=== PATIENT | male | born 1960 | race Caucasian/White ===

== ENCOUNTER 2019-05-22 08:07 | Outpatient (CLI) | payer OTHER, SELFPAY ==
--- NOTE | ~2019-05-22 | XR_ITS ---
EXAMINATION: XR chest 2V DATE: 05/22/2019 09:19 INDICATION: Prostate cancer. Preop. TECHNIQUE: Frontal and lateral views of the chest were obtained. COMPARISON: None. FINDINGS: The chest demonstrates clear lungs without pneumonia, pleural effusion, or pneumothorax. Th e heart size is normal. IMPRESSION: 1. No acute cardiopulmonary disease. Reviewed, dictated and finalized at location A. H TRIMMER HAND
--- NOTE | 2019-05-22 08:52 | ECG_ITS ---
Measurements Intervals Donna Rate: 61 P: 64 IL: 157 QRS: 57 QRSD: 102 T: 43 QT: 391 QTc: 397 Interpretive Statements SINUS RHYTHM DELAYED PRECORDIAL R/S TRANSITION BORDERLINE ECG Electronically Signed On 05-22-2019 9:37:23 TUBE CLOSING MACHINE OPERATOR by Rodolfo Blanca D.O.
[2019-05-22 09:18] LABS: Basophils Percent Auto 0.6 % (0.2-1.2); Eosinophils Absolute Auto 0.2 K/mm3 (0-0.3); Eosinophils Percent Auto 3.7 % (0-4.4); Hematocrit 42.5 % (42.0-52.0); Hemoglobin 14.3 g/dL (14.0-18.0); Immature Granulocyte Absolute 0.02 K/mm3 (0.00-0.031); Immature Granulocyte Percent A 0.3 % (0-0.5); Lymphocytes Absolute Auto 2.48 K/mm3 (0.9-3.2); Lymphocytes Percent Auto 39.7 % (18.3-44.2); Mean Corpuscular HGB Conc 33.6 g/dl (32-36); Mean Corpuscular Volume 89.1 fl (80-100); Mean Platelet Volume 10.7 fl (7.4-10.4); Monocytes Absolute Auto 0.5 K/mm3 (0.1-0.6); Monocytes Percent Auto 8.5 % (2.6-8.5); Neutrophils Absolute Auto 2.9 K/mm3 (1.3-6.7); Neutrophils Percent Auto 47.2 % (45.5-73.1); Platelet Count Result 273 k/mm3 (150-375); Red Blood Count 4.77 M/mm3 (4.6-6.20); Red Cell Distribution Width 12.6 % (11.5-14.5); White Blood Count 6.2 K/mm3 (4.5-10.0)
[2019-05-22 09:21] LABS: Add Urine Microscopic? YES; Appearance Urine Clear (Clear); Bilirubin Urine Negative (Negative); Blood Urine Negative (Negative); Color Urine Yellow (Yellow); Glucose Urine UA Negative (Negative); Ketones Urine Negative (Negative); Leukocyte Esterase Ur Negative LEU/UL (Negative); Mucus Urine Rare /lpf; Nitrate Urine Negative (Negative); Protein Urine Negative (Negative); RBC Urine 0-2 /hpf (0-2); Specific Grav Ur 1.011 (1.001-1.035); Urobilinogen Urine Negative mg/dL (<2.0)
[2019-05-22 09:28] LABS: INR 0.9; Prothrombin Time 12.3 Seconds (11.1-14.7)
[2019-05-22 09:29] LABS: Partial Thromboplastin Time 29.5 SECONDS (22.3-36.8)
[2019-05-22 09:31] LABS: Alanine Aminotransferase 36 U/L (4-50); Albumin Level 4.4 g/dL (3.5-5.1); Alkaline Phosphatase 78 U/L (38-126); Aspartate Amino Transferase 37 U/L (17-59); Bilirubin,Total 0.5 mg/dL (0.2-1.3); Blood Urea Nitrogen 16 mg/dL (9-20); Calcium 9.8 mg/dL (8.4-10.2); Carbon Dioxide 25 mmol/L (22-30); Chloride 101 mmol/L (98-107); Estimated Glomerular Filt Rate > 60; Glucose 87 mg/dL (75-110); Sodium 136 mmol/L (137-145)
== END 2019-05-22 08:08 | disposition home or self-care (01) ==
PROVIDERS: PCP Internal Medicine; Visit Provider Urology
DX: C61 Malignant neoplasm of prostate (principal)
CPT/HCPCS: 36415; 71046; 80053; 81001; 85025; 85610; 85730; 86850; 86900; 86901; 93005

== ENCOUNTER 2019-06-01 00:04 | Day surgery (SDC) | payer OTHER, SELFPAY ==
[2019-05-22 08:00] VITALS: BP 150/80; PULSE 64; RESP 20; TEMP 36.9; O2SAT 97; BMI 29.1
--- NOTE | 2019-05-30 17:18 | PM.IMHP ---
H&P: HPI History of Present Illness Chief complaint: Prostate Ca Narrative: Blayne Sykes is a 58 year old male with clinically localized CaP. He initially presented with PSA 5.6. Prostate biopsy showed 3 of 12 cores with Kamila 3+3=6 adenocarcinoma - a NCCN guideline low-risk CaP. His prostate size, by transrectal u/s was 31.1gm. After discussion and consideration, he's elected for robotic-assisted prostatecomy with bilateral pelvic lymphadenectAlternative treatment options (including active surveillance, radiation therapy in its various forms and androgen ablation) have been discussed. We've also discussed complications of this procedure including, but not limited to, failure to control his cancer, adverser cardiopulmonary events, rectal injury, need to convert to an open procedure, urinary incontinence and erectile dysfunction.geno. Review of Systems Constitutional: Constitutional: Denies chills, Denies fatigue, Denies fever(s) and Denies headache(s) Eyes: Eyes: Denies blurry vision ENT: Denies vertigo, Denies dizziness, Denies headache(s) and Denies sore throat Cardiovascular: Cardiovascular: Denies chest pain, Denies syncope, Denies lightheadedness, Denies palpitations, Denies dyspnea and Denies dyspnea on exertion Respiratory: Respiratory: Denies hemoptysis, Denies dyspnea and Denies dyspnea on exertion Gastrointestinal: Gastrointestinal: Denies melena, Denies bloating, Denies hematochezia, Denies change in bowel habits, Denies change in stool character, Denies constipation, Denies diarrhea and Denies vomiting Genitourinary: Genitourinary: Denies hematuria, Denies dysuria, Denies testicular pain, Denies urinary frequency, Denies urinary hesitancy and Denies urinary urgency Integumentary/Breasts: Skin/Breast: Denies pruritus, Denies lesions and Denies rash Neurologic: Denies confusion, Denies vertigo, Denies dizziness, Denies syncope and Denies headache(s) Psychiatric: Psychiatric: Denies anxiety, Denies change in appetite and Denies confusion Endocrine: Endocrine: Denies fatigue and Denies palpitations PMFSH Family History Family History Mother Patient's mother is in good health Sibling Patient's brother is in good health Social History Social History Smoking status: Never smoker Second hand tobacco smoke exposure: No Alcohol intake: current Meds Home Medications and Allergies Home Medications Medication Instructions Recorded Confirmed Type cyclobenzaprine 10 mg tablet 10 mg PO .hs PRN tablet 02/27/19 05/22/19 History eszopiclone 3 mg tablet 3 mg PO ONCE PRN 02/27/19 05/22/19 History multivitamin 1 tablet PO DAILY 02/27/19 05/22/19 History Allergies Allergy/AdvReac Type Severity Reaction Status Date / Time No Known Allergies Allergy Verified 02/27/19 16:18 Exam Const: General: healthy appearing, comfortable, no acute distress and well developed; No confusion Nutritional Appearance: well nourished Orientation/consciousness: patient oriented x3 and No confusion HENMT: Head: normocephalic and atraumatic Ears: external ears normal Face and sinus: normal facial exam Mouth: Yes lip normal Teeth and gingiva: dentition normal Eyes: General: appearance normal, both eyes and all related structures Alignment and Position: alignment normal Eyelids: eyelids normal Cornea: corneas normal Pupils: Equal, round and reactive pupils present EOM: EOMs intact bilaterally Neck: Neck: normal visual inspection, full ROM and no JVD Chest: Chest palpation & inspection: normal inspection of the chest Resp: Effort & Inspection: normal respiratory effort and no use of accessory muscles Auscultation: clear to auscultation bilaterally Cardio: Jugular venous distension: no JVD Rate: regular rate Rhythm: regular rhythm GI: Inspection: normal to inspection GI Palp: No abdominal tenderness, No
[2019-06-01] VITALS (13 sets, daily range): BP systolic 95–146; BP diastolic 59–88; PULSE 49–77; RESP 11–18; TEMP 35.4–37.3; O2SAT 98–100; BMI 28.7
[2019-06-01] MEDS: LACTATED RINGERS 1,000 ML 30 ML IV CONT ×2 (06:21→11:06)
--- NOTE | 2019-06-01 06:54 | WPDANESEPPF ---
Anes - Initial Pre Proc Eval Procedure: Operation Date: 06/01/19 07:30 Proposed Procedures p Robotic Assisted Radical Retropubic Prostatectomy, Bilateral Pelvic Lymphadenectomy(Bilateral) - Jose Angel Kaur MD Date/Time: 06/01/19 06:54 Surgeon: Jose Angel Kaur MD Pre Op Diagnosis: Prostate Ca Patient Data Age: 58 Gender: M Height: 1.78 m Weight: 92.2 kg Last Vital Signs Temp 36.9 C 05/22/19 08:00 Pulse 64 05/22/19 08:00 Resp 20 05/22/19 08:00 BP 150/80 H 05/22/19 08:00 Pulse Ox 97 05/22/19 08:00 Allergies Allergy/AdvReac Type Severity Reaction Status Date / Time No Known Allergies Allergy Verified 02/27/19 16:18 Home Medications Medication Instructions Recorded Confirmed Type cyclobenzaprine 10 mg tablet 10 mg PO .hs PRN tablet 02/27/19 05/22/19 History eszopiclone 3 mg tablet 3 mg PO ONCE PRN 02/27/19 05/22/19 History multivitamin 1 tablet PO DAILY 02/27/19 05/22/19 History ECG: SINUS RHYTHM DELAYED PRECORDIAL R/S TRANSITION BORDERLINE ECG Patient hx anesthesia problems: none Family hx anesthesia problems: none PMFSH Family History Family History Mother Patient's mother is in good health Sibling Patient's brother is in good health Social History Social History Smoking status: Never smoker Second hand tobacco smoke exposure: No Alcohol intake: current Anes - Eval Final PreProcedure Day of Procedure 06/01/19 06:54 Patient weight: overweight Heart: regular rate and rhythm Lungs: clear to auscultation and normal air movement Airway: Mallampati scale class 1 Neurological: alert and oriented Last oral intake: >/= 8 hours ASA classification: III Emergent: no Anesthetic plan: proceed Anesthesia type and monitoring: general ETT and standard monitoring Informed Consent: The patient's anesthetic plan and its attendant risks and benefits were discussed with the patient/family/POA. Questions were solicited and answers provided to the satisfaction of the patient/family/POA.
--- NOTE | 2019-06-01 06:57 | WPDHPUPDATE1 ---
History and Physical Update Update Date/Time: 06/01/19 06:57 History and Physical has been reviewed, including an updated exam of the patient. There are NO changes in the patient's condition. Risks, benefits, and alternatives have been discussed and questions answered. Patient agrees to proceed with procedure.
[2019-06-01] MEDS: ceFAZolin 2 GM/D5W 50 ML 2 GM/50 ML BAG IVPB (07:29)
--- NOTE | 2019-06-01 11:01 | PM.PROC ---
Procedure Note - Detailed Date of procedure: 06/01/19 Pre-op diagnosis: Prostate Ca Post-op diagnosis: same Procedure performed: Robotic-assisted, bilateral nerve-sparing radical retropubic prostatectomy. Bilateral pelvic lymphadenectomy. Description of procedure: The patient was brought to the operative suite, where he was prepped and draped in routine sterile fashion while in a dorsal lithotomy, deep Trendelenburg position. A supraumbilical 10 mm trocar was placed after insufflation of the abdomen with a Veress needle. Three robotic ports were then placed under direct vision. Two of these were placed in the right lower quadrant - 10 cm and 20 cm lateral to, and in line with, the umbilicus. A third robotic trocar was placed 10 cm to the left of the umbilicus, and 20 cm to the left of the umbilicus, a 12 mm standard laparoscopic trocar was placed to be used as an department assistant port. Lastly, a 5 mm trocar was placed in the left upper quadrant midway between the umbilicus and the left robotic trocar. Attention was then turned to the prostatectomy. I opted for a posterior approach in this patient. An incision was made in the parietal peritoneum along the posterior bladder/posterior prostate about 2 cm above the reflection of the peritoneum over the anterior rectum. The seminal vesicles and vas deferens were immediately identified. Dissection is undertaken in a fashion so as to avoid electrocautery as much as possible, particularly near the tips of the seminal vesicles. Dissection was also carried out in the midline so as to avoid any encounters with the ureters. The vas deferens and the seminal vesicles were dissected in their entirety to the base of the prostate. The plane anterior to Denoviller's fascia, anterior to the rectum and posterior to the prostate was then developed. I then dropped the bladder by incising the anterior parietal peritoneum just lateral to the median umbilical ligaments bilaterally. The bladder was dropped from the anterior abdominal and pelvic wall. The endopelvic fascia was identified and incised bilaterally, allowing for dissection of the posterior-lateral aspect of the prostate. The puboprostatic ligaments were transected near their origin from the posterior pubic ramus. This posterior lateral dissection of the prostate is also undertaken in a fashion so as to avoid electrocautery as much as possible. The dorsal vein of the penis is then secured with an 0 -Vicryl ligature. Attention is then turned to the bladder neck. The anterior bladder neck is incised at the vesico-prostatic junction. The previously placed urethral catheter was drawn through the urethrotomy. A very small bladder neck was maintained throughout the remainder of this dissection. The posterior bladder neck was incised in a fashion so as to avoid any injury to the ureteral orifices. Again, the small aperture of the bladder neck was maintained. The previously dissected vas deferens and the seminal vesicles were brought through the posterior bladder neck incision. The lateral prostatic pedicles were then carefully dissected from the lateral aspect of the prostate bilaterally. The prostatic pedicles were secured with Weck clips and transected. The neurovascular bundles were carefully dissected from the posterior-lateral aspect of the prostate. The dorsal vein of the penis was incised with electrocautery. Using cold scissors, the urethra was incised. After withdrawing the previously placed urethral catheter, the posterior urethra was sharply incised, as was the rectalurethralis muscle. Attention was then turned to a bilateral pelvic lymphadenectomy. The limits of this dissection were similar bilaterally. Specifically, the limits were the bifurcation of the common iliac vein proximally, the inguinal ligament distally, the obturator nerve posteriorly and the anterior aspect to the external iliac vein laterally. This dissection was undertaken with care to avoid any injury
--- NOTE | 2019-06-01 12:20 | ADMGEN ---
This patient, Blayne Sykes, was admitted to [facility] Surg Room 312-01. Patient/family oriented to hospital policies and general routines including ID bracelet, bed and alarms, visiting hours, pain management, procedures, bathroom and other care routines, personal items, smoking policy, room service/diet, and visiting hours. Valuables list has been completed. Information on how to activate the Rapid Response Team has been discussed. Patient/Family are encouraged to report perceived risks to care and to ask questions if they do not understand what they are told or what they should do.
[2019-06-01] MEDS: LACTATED RINGERS 1,000 ML 125 ML IV CONT ×2 (12:47→20:49)
[2019-06-01] MEDS: KETOROLAC 30 MG/ML VIAL (*BKC) IV PUSH ×2 (12:49→18:30)
[2019-06-01] MEDS: DOCUSATE SODIUM 100 MG CAPSULE PO (17:00)
[2019-06-01] MEDS: HYOSCYAMINE SULFATE 0.125 MG TABLET SUBLINGUAL (20:49)
[2019-06-02 02:00] VITALS: BP 123/64; PULSE 68; RESP 16; TEMP 36.6; O2SAT 100
[2019-06-02] MEDS: LACTATED RINGERS 1,000 ML 125 ML IV CONT (05:52)
[2019-06-02 06:00] VITALS: BP 131/74; PULSE 58; RESP 18; TEMP 36.7; O2SAT 100
[2019-06-02 06:22] LABS: Hematocrit 36.2 % (42.0-52.0); Hemoglobin 12.1 g/dL (14.0-18.0)
[2019-06-02 06:38] LABS: Blood Urea Nitrogen 13 mg/dL (9-20); Calcium 8.5 mg/dL (8.4-10.2); Carbon Dioxide 26 mmol/L (22-30); Chloride 103 mmol/L (98-107); Estimated CRCL calculation 79 ml/min; Estimated Glomerular Filt Rate > 60; Glucose 104 mg/dL (75-110); Potassium 3.9 mmol/L (3.4-5.0); Sodium 137 mmol/L (137-145)
--- NOTE | 2019-06-02 08:33 | P.DS_ITS ---
DS: Diagnosis Admitting Diagnosis Admitting Diagnosis: Malignant neoplasm of prostate DS: Summary Time Spent with Patient Time attestation: Total time spent providing and/or coordinating discharge services: 15 min. This patient was admitted on the morning of his planned robotic prostatectomy. This procedure was uneventful, as was his postoperative course. By the evening of the procedure he was sitting at the bedside in tolerating a liquid diet. The following morning he was ambulating freely and tolerating regular food. His catheter drainage remained essentially clear throughout. His postoperative hemo globin and serum creatinine were unremarkable. At the time of discharge he has been instructed in appropriate care for his Mcguire catheter with both a leg bag and bedside bag. He will be discharged with plans to follow-up in 1 week with a cystogram. Exam Const: General: no acute distress Resp: Effort & Inspection: normal respiratory effort GI: Inspection: non-distended GI Palp: No abdominal tenderness and No Guarding due to palpation present (GI) Auscultation: normal bowel sounds DS: Data Data Completed and Pending Pending studies at discharge: Pending at discharge 06/01/19 10:07 Surgical [PTH] Routine Labs on day of discharge: Labs from last 24 hours 06/02/19 06/02/19 05:48 05:48 Hgb 12.1 L Hct 36.2 L Sodium 137 Potassium 3.9 Chloride 103 Carbon Dioxide 26 BUN 13 Creatinine 0.90 Estim Creat Clear Calc 79 Estimated GFR > 60 Glucose 104 Calcium 8.5 Discharge Plan Discharge Patient Disposition: Home, Self-Care Discharge Instructions: 1) Mcguire catheter -> leg bag / bedside bag at night. 2) No lifting/straining >15lbs. x3 weeks. 3) No driving x1-week. 4) Resume normal, pre-operative diet. 5) My office will contact regarding follow-up in 1-week with cystogram. Patient Instructions: Pain Management (DC), Mcguire Catheter Placement and Care (DC), Robot Assisted Laparoscopic Prostatectomy (DC) Discharge Medications: New hydrocodone-acetaminophen 5-325 mg tablet 1 - 2 tablet PO Q6H PRN (Reason: pain) Qty: 20 RF: 0 hyoscyamine sulfate 0.125 mg tablet 0.125 mg PO Q6H PRN (Reason: bladder spasms) Qty: 20 RF: 2 docusate sodium [Colace] 100 mg capsule 100 mg PO DAILY Qty: 30 RF: 0 levofloxacin [Levaquin] 500 mg tablet 500 mg PO DAILY Qty: 7 RF: 5 Continued multivitamin [Multiple Vitamins] Tablet 1 tablet PO DAILY RF: 0 cyclobenzaprine 10 mg tablet 10 mg PO .hs PRN (Reason: muscle spasm) RF: 0 eszopiclone [Lunesta] 3 mg tablet 3 mg PO ONCE PRN (Reason: SLEEP) RF: 0
--- NOTE | 2019-06-02 08:35 | WPDUROPN2 ---
Subjective Subjective Date/Time Seen: 06/02/19 08:35 POD #1 RALP - comfortable and tolerating diet. Review of Systems Cardiovascular: Cardiovascular: Denies chest pain, Denies lightheadedness, Denies palpitations and Denies dyspnea Respiratory: Respiratory: Denies dyspnea Gastrointestinal: Gastrointestinal: Denies diarrhea, Denies nausea and Denies vomiting Genitourinary: Genitourinary: Denies hematuria and Denies dysuria Endocrine: Endocrine: Denies palpitations Exam Const: General: no acute distress Resp: Effort & Inspection: normal respiratory effort GI: Inspection: non-distended and other (incisions healing nicely) GI Palp: No abdominal tenderness and No Guarding due to palpation present (GI) Auscultation: normal bowel sounds Objective Data Vital Signs Vital Signs: Vital Signs - 24 hr 06/01/19 11:05 06/01/19 11:20 06/01/19 11:26 Temperature 36.2 C L Pulse Rate 50 L 50 L 50 L Respiratory Rate 17 11 L 12 Blood Pressure 95/62 L 107/71 101/70 Pulse Oximetry 100 100 100 06/01/19 11:35 06/01/19 11:50 06/01/19 12:05 Temperature Pulse Rate 49 L 49 L 74 Respiratory Rate 11 L 12 11 L Blood Pressure 112/75 102/61 104/73 Pulse Oximetry 100 99 98 06/01/19 12:20 06/01/19 12:35 06/01/19 13:05 Temperature 35.4 C L Pulse Rate 51 L 56 L 65 Respiratory Rate 16 16 14 Blood Pressure 102/59 L 104/65 111/70 Pulse Oximetry 100 98 98 06/01/19 14:05 06/01/19 18:00 06/01/19 22:00 Temperature 35.8 C L 37.0 C 37.3 C Pulse Rate 68 75 62 Respiratory Rate 14 14 16 Blood Pressure 116/75 133/78 126/69 Pulse Oximetry 100 100 100 06/02/19 02:00 06/02/19 06:00 Temperature 36.6 C 36.7 C Pulse Rate 68 58 L Respiratory Rate 16 18 Blood Pressure 123/64 131/74 Pulse Oximetry 100 100 Intake/Output Intake/Output: Intake & Output 05/30/19 05/31/19 06/01/19 06/02/19 23:59 23:59 23:59 23:59 Intake Total 1989 2199 Output Total 2400 Balance 1700 -200 Meds/Results Medications: Active Medications Generic Name Dose Route Start Last Admin Trade Name Zelalemq PRN Reason Stop Dose Admin Docusate Sodium 100 mg 06/01/19 17:00 06/01/19 17:00 Colace Capsule PO 100 mg BID HELEN Administration Hyoscyamine 0.125 mg 06/01/19 12:13 06/01/19 20:49 Levsin Tablet SUBLINGUAL 0.125 mg Q4H PRN Administration Bladder Spasm Lactated Ringer's 1,000 mls @ 125 mls/hr 06/01/19 12:13 06/02/19 05:52 Lr - Lactated Ringers Iv IV CONT 125 mls/hr .Q8H HELEN Administration Acetaminophen 1,000 mg in 100 mls @ 400 mls/hr 06/01/19 15:00 06/02/19 03:07 Ofirmev 1,000 Mg Ivpb IVPB 06/02/19 15:01 Infused Q6H HELEN Infusion Ketorolac Tromethamine 30 mg 06/01/19 12:13 06/01/19 18:30 Toradol Inj IV PUSH 06/02/19 12:14 30 mg Q6H PRN Administration Pain Rated 4-6 Levofloxacin 500 mg 06/02/19 09:00 Levaquin Tab PO DAILY HELEN Naloxone HCl 0.1 mg 06/01/19 12:13 Narcan IV PUSH Q2M PRN Opiate Reversal Ondansetron HCl 4 mg 06/01/19 12:13 Zofran Inj IV PUSH Q6H PRN Nausea And Vomiting Labs Labs: Laboratory Results - last 24 hr 06/02/19 06/02/19 05:48 05:48 Hgb 12.1 L Hct 36.2 L Sodium 137 Potassium 3.9 Chloride 103 Carbon Dioxide 26 BUN 13 Creatinine 0.90 Estim Creat Clear Calc 79 Estimated GFR > 60 Glucose 104 Calcium 8.5
[2019-06-02] MEDS: DOCUSATE SODIUM 100 MG CAPSULE PO (08:40)
[2019-06-02 11:02] VITALS: BP 148/81; PULSE 98; RESP 16; TEMP 37.7; O2SAT 99
== END 2019-06-02 10:45 | disposition home or self-care (01) ==
LOC: ANHSURGERY 06:11 → ANH3MEDSUR 12:26
PROVIDERS: PCP Internal Medicine; Visit Provider Urology
PROC: 0VT04ZZ Resection of Prostate, Percutaneous Endoscopic Approach (ICD-10-PCS; CPT 55867; principal; 2019-06-01 07:30)
DX: C61 Malignant neoplasm of prostate (principal)
CPT/HCPCS: 55866; 38571; S2900; 36415; 80048; 85014; 85018; 88305; 88307; 88309; A9270; J0131; J0690; J1100; J1170; J1885; J2250; J2405; J2704; J2710; J3010; J7030; J7120; Q9968

== ENCOUNTER 2019-06-09 10:34 | Outpatient (CLI) | payer OTHER, SELFPAY ==
--- NOTE | ~2019-06-09 | XR_ITS ---
EXAMINATION: XR cystogram EXAM DATE: 06/09/2019 11:13 INDICATION: Prostatectomy last week. TECHNIQUE: Fluoroscopy used during cystogram performed through Mcguire catheter in place on patient francisco galvan. Omnipaque water solution used. Dose reduction digital pulsed fluoroscopy was used at 4 frames per second with DAP 10 Gycm2. FINDINGS: Patient tolerated approximately 200 mL of Omnipaque solution. There is no lateral wall tra beculation, contrast extravasation or ureteral reflux demonstrated. IMPRESSION: Unremarkable cystogram. Reviewed, dictated and finalized at location A. GATION ENGINEER IMPRESSION: Unremarkable cystogram.
== END 2019-06-09 10:35 | disposition home or self-care (01) ==
PROVIDERS: PCP Internal Medicine; Visit Provider Urology
DX: C61 Malignant neoplasm of prostate (principal)
CPT/HCPCS: 51600; 74430; Q9967